=== PATIENT | female | born 1950 | race Caucasian/White ===

== ENCOUNTER 2016-11-01 07:29 | Day surgery (SDC) | payer BC, OTHER ==
[~2016-11-01 07:29] MED LIST: ELIQUIS5 MG PO; LISINOPRIL10 MG PO; SOTALOL HCL PO
--- NOTE | 2016-11-01 12:45 | Provider's Discharge Care Plan ---
Problem, Goal, Plan Problem List 1. History of colon polyps
--- NOTE | 2016-11-01 12:45 | Provider's Discharge Care Plan ---
Problem, Goal, Plan Problem List 1. History of colon polyps
[2016-11-01 13:23] VITALS: BP 105/71
--- NOTE | 2016-11-01 13:40 | OPERATIVE REPORT ---
DATE OF SURGERY: 11/01/2016 SURGEON: Shreyas Hanson MD PREOPERATIVE DIAGNOSIS: 1. History of colon polyps POSTOPERATIVE DIAGNOSIS: 1. Diverticulosis PROCEDURE PERFORMED: 1. Colonoscopy ANESTHESIA: Total IV general. INDICATIONS: The patient is a 66-year-old woman with a previous history of colon polyps. SURGICAL TECHNIQUE: The patient was taken to the endoscopy suite where total IV general was administered. The patient was placed in the left lateral decubitus position. The ileocecal valve was reached. On withdrawal, the entire colon was inspected. There were no polyps or tumors seen. There were multiple diverticula in the sigmoid and left colon. A retroflexed view of the rectum was normal. The patient left in good condition.
== END 2016-11-01 13:48 | disposition home or self-care (01) ==
LOC: OR SRH 07:29 → OB SRH 07:33 → OR SRH 10:00
PROVIDERS: Surgery
PROC: 0DJD8ZZ Inspection of Lower Intestinal Tract, Via Natural or Artificial Opening Endoscopic (ICD-10-PCS; principal; 2016-11-01 10:00)
DX: Z12.11 Encounter for screening for malignant neoplasm of colon (principal); Z86.010 Personal history of colon polyps; K57.30 Diverticulosis of large intestine without perforation or abscess without bleeding; Z79.02 Long term (current) use of antithrombotics/antiplatelets; I48.91 Unspecified atrial fibrillation